=== PATIENT | male | born 1965 | race Caucasian/White ===

== ENCOUNTER 2016-03-07 23:54 | Inpatient (IN) | payer BC ==
--- NOTE | 2016-03-08 00:20 | HP ---
CIWA Score - CIWA Score Nausea/Vomitin-No Nausea/No Vomiting Muscle Tremors: 4-Moderate,w/Arms Extend Anxiety: 7-Acute Panic/Severe Agitation: 4-Moderately Restless Paroxysmal Sweats: 4-Forehead w/Sweat Beads Orientation: 1-Uncertain about Date Tacttile Disturbances: 0-None Auditory Disturbances: 0-None Visual Disturbances: 0-None Headache: 0-None Present CIWA-Ar Total Score: 20 Admission ROS [facility] - HPI Chief Complaint: WITHDRAWAL SX'S Allergies/Adverse Reactions: Allergies Allergy/AdvReac Type Severity Reaction Status Date / Time No Known Allergies Allergy Verified 03/08/16 00:14 History of Present Illness: 50 Y.O. MALE WITH ALCOHOLISM HERE FOR DETOX TXMENT. CLIENT STATES THIS IS HIS FIRST TIME IN A DETOX TXMENT. BROUGHT IN BY HIS FAMILY. CLIENT IS CURRENTLY INTOXICATED BUT IS COHERENT WITH STEADY GAIT. REPORTS LONGEST SOBRIETY TIME IS 4 YEARS. Exam Limitations: No Limitations - Ebola screening Have you traveled outside of the country in the last 21 days: No (N) Have you had contact with anyone from an Ebola affected area: No Do you have a fever: No - Review of Systems Constitutional: Loss of Appetite EENT: reports: No Symptoms Reported Respiratory: reports: No Symptoms reported Cardiac: reports: No Symptoms Reported GI: reports: No Symptoms Reported : reports: No Symptoms Reported Musculoskeletal: reports: No Symptoms Reported Integumentary: reports: Flushing, Sweating Neuro: reports: Tremors Endocrine: reports: No Symptoms Reported Hematology: reports: No Symptoms Reported Psychiatric: reports: Anxious Other Systems: Reviewed and Negative Patient History - Patient Medical History Hx Anemia: No Hx Asthma: No Hx Chronic Obstructive Pulmonary Disease (COPD): No Hx Cancer: No Hx Cardiac Disorders: No Hx Congestive Heart Failure: No Hx Hypertension: No Hx Hypercholesterolemia: No Hx Pacemaker: No HX Cerebrovascular Accident: No Hx Seizures: No Hx Dementia: No Hx Diabetes: No Hx Gastrointestinal Disorders: No Hx Liver Disease: No Hx Genitourinary Disorders: No Hx Sexually Transmitted Disorders: No Hx Renal Disease (ESRD): No Hx Thyroid Disease: No Hx Human Immunodeficiency Virus (HIV): No Hx Hepatitis C: No Hx Depression: No Hx Suicide Attempt: No Hx Bipolar Disorder: No Hx Schizophrenia: No Other Medical History: DENIES - Patient Surgical History Past Surgical History: No - PPD History Previous Implant?: Yes Documented Results: Negative w/o proof Implanted On Prior [facility] Admission?: No PPD to be Administered?: Yes - Smoking Cessation Smoking history: Never smoked Initiated information on smoking cessation: No - Substance & Tx. History Hx Alcohol Use: Yes Hx Substance Use: No Substance Use Type: Alcohol Hx Substance Use Treatment: No - Substances Abused WHISKEY Route: Oral Frequency: 3-6 times per week Amount used: 2 BOTTLES Age of first use: 19 Date of Last Use: 03/07/16 Family Disease History - Family Disease History Family Disease History: Diabetes: Mother, Other: Father (RECOVERING ETOH) Admission Physical Exam [facility] - Physical General Appearance: Yes: Appropriately Dressed, Mild Distress, Intoxicated, Sweating, Anxious HEENTM: Yes: EOMI, JUNIOR, Pharynx Normal, Other (POOR DENTITION) Respiratory: Yes: Chest Non-Tender, Lungs Clear, Normal Breath Sounds, No Respiratory Distress, No Accessory Muscle Use Neck: Yes: No masses,lesions,Nodules, Supple, Trachea in good position Breast: Yes: Breast Exam Deferred Cardiology: Yes: Regular Rhythm, S1, S2, Tachycardia Abdominal: Yes: Normal Bowel Sounds, Non Tender, Soft, Protuberent Genitourinary: Yes: Within Normal Limits Back: Yes: Normal Inspection Musculoskeletal: Yes: full range of Motion, Gait Steady Extremities: Yes: Normal Capillary Refill, Normal Range of Motion, Tremors Neurological: Yes: Alert, Motor Strength 5/5 Integumentary: Yes: Warm, Moist Lymphatic: Yes: Within Normal Limits - Diagnostic (1) Alcohol dependence with uncomplicated withdrawal Current Visit: Yes Status: Acute Cleared for Admission [facility] - Detox or Rehab [facility] Level of Care: Medically Managed Detox Regimen/Protocol: Librium [facility] Breath Alcohol Content Breath Alcohol Content: 0.467 Vital Signs - Vital Signs Vital Signs Refused: No Temperature: 98.1 F Temperature Source: Oral Pulse Rate: 111 Respiratory Rate: 20 Blood Pressure: 144/103 BP Location: Left Arm Blood Pressure Position: Sitting - Height Height: 5 ft 6 in - Weight Weight: 83.461 kg Weight Measurement Method: Standing Scale Body Mass Index (BMI): 29.7 Urine Drug Screen - Test Device Lot Number: [id number] Expiration Date: 10/26/17 - Control Is Test Valid: Yes - Results Drug Screen Negative: No
[2016-03-08 00:32] VITALS: BMI 29.7
[2016-03-08] MEDS ORDERED: P-EPHED 60MG/TRIPROLIDI 2.5MG TABLET PO PRN (00:32)
[2016-03-08] MEDS ORDERED: hydrOXYzine PAMOATE 50 MG CAPSULE (FP) PO PRN (00:32)
[2016-03-08] MEDS ORDERED: NICOTINE POLACRILEX 2 MG GUM BC PRN (00:32)
[2016-03-08] MEDS ORDERED: MAG HYDROX/AL HYDROX/SIMETH 30 ML UNIT-DOSE CUP PO PRN (00:32)
[2016-03-08] MEDS ORDERED: LOPERAMIDE HCL 2 MG CAPSULE PO PRN (00:32)
[2016-03-08] MEDS ORDERED: guaiFENesin/D-METHORPHAN HB 10 ML UNIT-DOSE CUPS PO PRN (00:32)
[2016-03-08] MEDS ORDERED: MAGNESIUM HYDROX 2400MG/30ML ORAL SUSPENSION 30 ML CUP PO PRN (00:32)
[2016-03-08] MEDS ORDERED: MENTHOL/PHENOL 1 EACH UD MM PRN (00:32)
[2016-03-08] MEDS ORDERED: diphenhydrAMINE HCL 50 MG CAPSULE PO PRN (00:32)
[2016-03-08] MEDS ORDERED: chlordiazePOXIDE HCL 25 MG CAPSULE PO PRN (00:32)
[2016-03-08] MEDS ORDERED: chlordiazePOXIDE HCL 25 MG CAPSULE PO ONE (00:32)
[2016-03-08] MEDS ORDERED: IBUPROFEN 400 MG TABLET (FP) PO PRN (00:32)
[2016-03-08] MEDS ORDERED: MAGNESIUM CITRATE 300 ML BOTTLE PO PRN (00:32)
[2016-03-08] MEDS: chlordiazePOXIDE HCL 25 MG CAPSULE PO SCH ×4 (05:48→22:33)
--- NOTE | 2016-03-08 09:23 | PN ---
S CIWA - CIWA Score Nausea/Vomitin Muscle Tremors: 3 Anxiety: 3 Agitation: 3 Paroxysmal Sweats: 2 Orientation: 0-Oriented Tacttile Disturbances: 1-Very Mild Itch/Numbness Auditory Disturbances: 1-Very Mild Visual Disturbances: 1-Very Mild Sensitivity Headache: 2-Mild CIWA-Ar Total Score: 19 BHS Progress Note (SOAP) Subjective: ALERT,IRRITABLE,ANXIOUS,INTERRUPTED TREMOR,PAIN IN THE BODY Objective: 03/08/16 09:20 Vital Signs Temperature 97.6 F 03/08/16 06:28 Pulse Rate 98 H 03/08/16 06:28 Respiratory Rate 18 03/08/16 06:28 Blood Pressure 134/85 03/08/16 06:28 O2 Sat by Pulse Oximetry (%) LABS PENDING 03/08/16 09:22 EKG NSR,NORMAL ECG Assessment: 03/08/16 09:21 WITHDRAWAL SYMPTOM 03/08/16 09:22 Plan: CONTINUE DETOX
[2016-03-08 10:13] LABS: MCH 30.8 pg (25.7-33.7); MCHC 34.3 g/dl (32.0-35.9); MEAN CELL VOLUME 89.7 fl (80-96); MEAN PLT VOLUME 6.8 fl (7.5-11.1); PLATELET COUNT 274 K/MM3 (134-434); RDW 13.4 % (11.9-15.9); WHITE BLOOD COUNT 5.6 K/mm3 (4.0-10.0)
--- NOTE | 2016-03-08 10:20 | EKG ---
Test Reason : Blood Pressure : / mmHG Vent. Rate : 100 BPM Atrial Rate : 100 BPM P-R Int : 146 ms QRS Dur : 086 ms QT Int : 346 ms P-R-T Axes : 049 058 030 degrees QTc Int : 446 ms NORMAL SINUS RHYTHM NORMAL ECG NO PREVIOUS ECGS AVAILABLE Confirmed by LUBA MAURICE MD ([id number]) on 03/08/2016 10:20:06 AM Referred By: Confirmed By:LUBA MAURICE MD
[2016-03-08] MEDS: PRENATAL VITAMINS W/ FOLIC ACID TABLET (FP) PO SCH (10:31)
[2016-03-08 10:36] LABS: ALBUMIN 4.1 g/dl (3.4-5.0); ALK PHOS 94 U/L (45-117); ANION GAP 11 (8-16); BILIRUBIN,TOTAL 0.5 mg/dL (0.2-1.0); CALCIUM 8.2 mg/dL (8.5-10.1); CO2 25 mmol/L (21-32); CREATININE 1.1 mg/dL (0.7-1.3); GLUCOSE,RANDOM 117 mg/dL (74-106); SGOT/AST 48 U/L (15-37); SGPT/ALT 80 U/L (12-78); TOT PROT 6.9 g/dl (6.4-8.2)
[2016-03-08] MEDS ORDERED: INFLUENZA VACCINE 45 MCG/0.5 ML (MDV 16-17) IM ONE (12:00)
--- NOTE | 2016-03-08 13:16 | CONSULT ---
[facility] Psychiatric Consult - Data Date of interview: 03/08/16 Admission source: [facility] Identifying data: First admission to [facility] for this 50 y/o male seeking detox treatment on for alcohol dependence.Patient is ,a father of two,domiciled and employed. Substance Abuse History: - Smoking Cessation. Smoking history: Never smoked. Initiated information on smoking cessation: No. - Substance & Tx. History. Hx Alcohol Use: Yes. Hx Substance Use: No. Substance Use Type: Alcohol. Hx Substance Use Treatment: No. - Substances Abused. WHISKEY. Route: Oral. Frequency: 3-6 times per week. Amount used: 2 BOTTLES. Age of first use: 19. Date of Last Use: 03/07/16. Confirmed by patient. Medical History: No reported medical problems. Psychiatric History: No history of psychiatric hospitalizations.Diagnosed with MDD/Anxiety Disorder.Mr De Leon is treated by his primary care physician.Medication : pristiq 50 mg/day.Patient states that he last took his medication on 03/07/16.No history of suicide attempts. Physical/Sexual Abuse/Trauma History: Patient denies. Additional Comment: Drug Screen Negative: No Mental Status Exam - Mental Status Exam Alert and Oriented to: Time, Place, Person Cognitive Function: Good Patient Appearance: Well Groomed Mood: Anxious, Apprehensive, Hopeful Affect: Mood Congruent Patient Behavior: Appropriate, Cooperative Speech Pattern: Clear Voice Loudness: Normal Thought Process: Goal Oriented Thought Disorder: Not Present Hallucinations: Denies Suicidal Ideation: Denies Insight/Judgement: Fair Sleep: Well Appetite: Good Muscle strength/Tone: Normal Gait/Station: Normal Psychiatric Findings - Problem List ([place] 1, 2,3) (1) Alcohol dependence with uncomplicated withdrawal Current Visit: Yes Status: Acute (2) Mood disorder Current Visit: Yes Status: Chronic (3) Anxiety disorder Current Visit: Yes Status: Chronic - Initial Treatment Plan Initial Treatment Plan: Psychoeducation.Detoxification.Pristiq is not formulary.Effexor is the alternate.Side effects/benefits discussed with patient.Will switch to effexor if patient consents to that intervention.Observation.
[2016-03-08 14:08] LABS: PH,URINE 7.5 (5.0-8.0); URINE APPEARANCE CLEAR; URINE BILIRUBIN NEGATIVE (NEGATIVE); URINE BLOOD NEGATIVE (NEGATIVE); URINE COLOR LT. YELLOW; URINE GLUCOSE (UA) NEGATIVE (NEGATIVE); URINE KETONE NEGATIVE (NEGATIVE); URINE LEUK ESTERASE NEGATIVE (NEGATIVE); URINE NITRITE NEGATIVE (NEGATIVE); URINE PROTEIN NEGATIVE (NEGATIVE); URINE UROBILINOGEN 0.2 E.U/dl E.U./dl (0.2-1.0)
[2016-03-08] MEDS: THIAMINE HCL 100 MG TABLET (FP) PO SCH (22:33)
[2016-03-09] MEDS: chlordiazePOXIDE HCL 25 MG CAPSULE PO SCH ×4 (05:53→22:25)
[2016-03-09] MEDS ORDERED: ONDANSETRON *ODT* 4 MG TABLET SL PRN (09:13)
--- NOTE | 2016-03-09 09:52 | PN ---
S CIWA - CIWA Score Nausea/Vomitin Muscle Tremors: 3 Anxiety: 3 Agitation: 2 Paroxysmal Sweats: 1-Minimal Palms Moist Orientation: 0-Oriented Tacttile Disturbances: 1-Very Mild Itch/Numbness Auditory Disturbances: 1-Very Mild Visual Disturbances: 1-Very Mild Sensitivity Headache: 2-Mild CIWA-Ar Total Score: 17 BHS Progress Note (SOAP) Subjective: ALERT,IRRITABLE,ANXIOUS,TREMOR,INTERRUPTED SLEEP,NAUSEA Objective: 03/09/16 09:50 Vital Signs Temperature 97.5 F L 03/09/16 06:40 Pulse Rate 88 03/09/16 06:40 Respiratory Rate 18 03/09/16 06:40 Blood Pressure 151/95 03/09/16 06:40 O2 Sat by Pulse Oximetry (%) Laboratory Last Values WBC 5.6 K/mm3 (4.0-10.0) 03/08/16 07:30 RBC 5.42 M/mm3 (4.00-5.60) 03/08/16 07:30 Hgb 16.7 GM/dL (11.7-16.9) 03/08/16 07:30 Hct 48.6 % (35.4-49) 03/08/16 07:30 MCV 89.7 fl (80-96) 03/08/16 07:30 MCHC 34.3 g/dl (32.0-35.9) 03/08/16 07:30 RDW 13.4 % (11.9-15.9) 03/08/16 07:30 Plt Count 274 K/MM3 (134-434) 03/08/16 07:30 MPV 6.8 fl (7.5-11.1) L 03/08/16 07:30 Sodium 144 mmol/L (136-145) 03/08/16 07:30 Potassium 3.9 mmol/L (3.5-5.1) 03/08/16 07:30 Chloride 108 mmol/L (98-107) H 03/08/16 07:30 Carbon Dioxide 25 mmol/L (21-32) 03/08/16 07:30 Anion Gap 11 (8-16) 03/08/16 07:30 BUN 18 mg/dL (7-18) 03/08/16 07:30 Creatinine 1.1 mg/dL (0.7-1.3) 03/08/16 07:30 Creat Clearance w eGFR > 60 (>60) 03/08/16 07:30 Random Glucose 117 mg/dL (74-106) H 03/08/16 07:30 Calcium 8.2 mg/dL (8.5-10.1) L 03/08/16 07:30 Total Bilirubin 0.5 mg/dL (0.2-1.0) 03/08/16 07:30 AST 48 U/L (15-37) H 03/08/16 07:30 ALT 80 U/L (12-78) H 03/08/16 07:30 Alkaline Phosphatase 94 U/L (45-117) 03/08/16 07:30 Total Protein 6.9 g/dl (6.4-8.2) 03/08/16 07:30 Albumin 4.1 g/dl (3.4-5.0) 03/08/16 07:30 Urine Color Lt. yellow 03/08/16 12:00 Urine Appearance Clear 03/08/16 12:00 Urine pH 7.5 (5.0-8.0) 03/08/16 12:00 Ur Specific [place] 1.020 (1.001-1.035) 03/08/16 12:00 Urine Protein Negative (NEGATIVE) 03/08/16 12:00 Urine Glucose (UA) Negative (NEGATIVE) 03/08/16 12:00 Urine Ketones Negative (NEGATIVE) 03/08/16 12:00 Urine Blood Negative (NEGATIVE) 03/08/16 12:00 Urine Nitrite Negative (NEGATIVE) 03/08/16 12:00 Urine Bilirubin Negative (NEGATIVE) 03/08/16 12:00 Urine Urobilinogen 0.2 e.u/dl E.U./dl (0.2-1.0) 03/08/16 12:00 Ur Leukocyte Esterase Negative (NEGATIVE) 03/08/16 12:00 RPR Titer Nonreactive (NONREACTIVE) 03/08/16 07:30 Assessment: 03/09/16 09:51 WITHDRAWAL SYMPTOM Plan: CONTINUE DETOX,INITIAL GLUCOSE IS 117,BGM MONITORING
[2016-03-09] MEDS: PRENATAL VITAMINS W/ FOLIC ACID TABLET (FP) PO SCH (10:25)
[2016-03-09] MEDS: ACETAMINOPHEN 325 MG TABLET (FP) PO PRN (22:25)
[2016-03-09] MEDS: THIAMINE HCL 100 MG TABLET (FP) PO SCH (22:26)
[2016-03-10] MEDS: chlordiazePOXIDE 5 MG CAPSULE PO SCH ×4 (05:09→22:29)
[2016-03-10] MEDS: PRENATAL VITAMINS W/ FOLIC ACID TABLET (FP) PO SCH (10:15)
--- NOTE | 2016-03-10 12:13 | PN ---
BHS Progress Note (SOAP) Subjective: SWEATING,INTERRUPTED SLEEP,RESTLESS Objective: 03/10/16 12:12 Vital Signs - 8 hr 03/10/16 03/10/16 06:27 09:34 Temperature 97.3 F L 96.2 F L Pulse Rate 90 79 Respiratory 18 18 Rate Blood Pressure 115/93 117/73 Laboratory Tests 03/08/16 03/08/16 03/08/16 07:30 07:30 07:30 WBC 5.6 RBC 5.42 Hgb 16.7 Hct 48.6 MCV 89.7 MCHC 34.3 RDW 13.4 Plt Count 274 MPV 6.8 L Sodium 144 Potassium 3.9 Chloride 108 H Carbon Dioxide 25 Anion Gap 11 BUN 18 Creatinine 1.1 Creat Clearance w eGFR > 60 Random Glucose 117 H Calcium 8.2 L Total Bilirubin 0.5 AST 48 H ALT 80 H Alkaline Phosphatase 94 Total Protein 6.9 Albumin 4.1 Urine Color Urine Appearance Urine pH Ur Specific [place] Urine Protein Urine Glucose (UA) Urine Ketones Urine Blood Urine Nitrite Urine Bilirubin Urine Urobilinogen Ur Leukocyte Esterase RPR Titer Nonreactive 03/08/16 12:00 WBC RBC Hgb Hct MCV MCHC RDW Plt Count MPV Sodium Potassium Chloride Carbon Dioxide Anion Gap BUN Creatinine Creat Clearance w eGFR Random Glucose Calcium Total Bilirubin AST ALT Alkaline Phosphatase Total Protein Albumin Urine Color Lt. yellow Urine Appearance Clear Urine pH 7.5 Ur Specific [place] 1.020 Urine Protein Negative Urine Glucose (UA) Negative Urine Ketones Negative Urine Blood Negative Urine Nitrite Negative Urine Bilirubin Negative Urine Urobilinogen 0.2 e.u/dl Ur Leukocyte Esterase Negative RPR Titer LABS NOTED Assessment: 03/10/16 12:13 WITHDRAWAL SX. Plan: CONTINUE DETOX
[2016-03-10] MEDS: ACETAMINOPHEN 325 MG TABLET (FP) PO PRN (20:16)
[2016-03-10] MEDS: THIAMINE HCL 100 MG TABLET (FP) PO SCH (22:29)
[2016-03-11] MEDS ORDERED: chlordiazePOXIDE HCL 10 MG CAPSULE PO SCH (05:00)
[2016-03-11 06:30] VITALS: BP 141/91; PULSE 81; TEMP 97.8
--- NOTE | 2016-03-11 08:34 | DS ---
[facility] Detox Discharge Summary Admission Date: 03/08/16 Discharge Date: 03/11/16 - History Present History: Alcohol Dependence Pertinent Past History: see below - Physical Exam Results Vital Signs: Vital Signs Temperature 97.8 F 03/11/16 06:30 Pulse Rate 81 03/11/16 06:30 Respiratory Rate 18 03/11/16 06:30 Blood Pressure 141/91 03/11/16 06:30 O2 Sat by Pulse Oximetry (%) Pertinent Admission Physical Exam Findings: admitted in acute withdrawal medically stable on dc detox completed discharge today Laboratory Results - last 24 hr 03/10/16 03/11/16 16:16 05:52 POC Glucometer 128 108 Laboratory Tests 03/08/16 03/08/16 03/08/16 07:30 07:30 07:30 WBC 5.6 RBC 5.42 Hgb 16.7 Hct 48.6 MCV 89.7 MCHC 34.3 RDW 13.4 Plt Count 274 MPV 6.8 L Sodium 144 Potassium 3.9 Chloride 108 H Carbon Dioxide 25 Anion Gap 11 BUN 18 Creatinine 1.1 Creat Clearance w eGFR > 60 POC Glucometer Random Glucose 117 H Calcium 8.2 L Total Bilirubin 0.5 AST 48 H ALT 80 H Alkaline Phosphatase 94 Total Protein 6.9 Albumin 4.1 Urine Color Urine Appearance Urine pH Ur Specific [place] Urine Protein Urine Glucose (UA) Urine Ketones Urine Blood Urine Nitrite Urine Bilirubin Urine Urobilinogen Ur Leukocyte Esterase RPR Titer Nonreactive 03/08/16 03/10/16 03/11/16 12:00 16:16 05:52 WBC RBC Hgb Hct MCV MCHC RDW Plt Count MPV Sodium Potassium Chloride Carbon Dioxide Anion Gap BUN Creatinine Creat Clearance w eGFR POC Glucometer 128 108 Random Glucose Calcium Total Bilirubin AST ALT Alkaline Phosphatase Total Protein Albumin Urine Color Lt. yellow Urine Appearance Clear Urine pH 7.5 Ur Specific [place] 1.020 Urine Protein Negative Urine Glucose (UA) Negative Urine Ketones Negative Urine Blood Negative Urine Nitrite Negative Urine Bilirubin Negative Urine Urobilinogen 0.2 e.u/dl Ur Leukocyte Esterase Negative RPR Titer Vital Signs - 24 hr 03/10/16 03/10/16 03/10/16 09:34 13:09 17:30 Temperature 96.2 F L 98.2 F 98.8 F Pulse Rate 79 106 H 96 H Respiratory 18 20 18 Rate Blood Pressure 117/73 148/96 135/83 03/10/16 03/11/16 03/11/16 22:04 00:21 06:30 Temperature 98.2 F 97.8 F Pulse Rate 86 81 Respiratory 18 18 18 Rate Blood Pressure 136/91 141/91 - Medication Discharge Medications: Ambulatory Orders NK [No Known Home Medication] 03/08/16 - Diagnosis (1) Alcohol dependence with uncomplicated withdrawal Current Visit: Yes Status: Acute (2) Anxiety disorder Current Visit: Yes Status: Chronic (3) Mood disorder Current Visit: Yes Status: Chronic - AMA Did Patient Leave Against Medical Advice: No
== END 2016-03-11 08:33 | disposition home or self-care (01) | DRG 897 ==
LOC: YASAS 23:54 → Y3N 03-08 00:12
PROVIDERS: ADMIT Internal Medicine; ATTEND Internal Medicine
PROC: HZ2ZZZZ Detoxification Services for Substance Abuse Treatment (ICD-10-PCS; principal; 2016-03-08)
DX: F10.230 Alcohol dependence with withdrawal, uncomplicated (principal); F41.9 Anxiety disorder, unspecified; F39 Unspecified mood [affective] disorder; R00.0 Tachycardia, unspecified
CPT/HCPCS: 36415; 80053; 81003; 85027; 86593; 93005; 93010